=== PATIENT | male | born 1980 | race Caucasian/White ===

== ENCOUNTER 2025-04-09 11:59 | Emergency (ER) | payer BC, SELFPAY ==
[2025-04-09 12:00] VITALS: BP 120/105; PULSE 88; RESP 16; TEMP 36; O2SAT 100; BMI 25.7
--- NOTE | 2025-04-09 12:08 | EDS_ITS ---
HPI HPI - GI History of Present Illness Chief Complaint: Constipation Abdominal Pain/Flank Pain Onset: Weeks (3) Context: Gradual Onset Timing: Continuous Quality: Burning Location: Diffuse and - (Back, bilateral lower leg) Worsened by: Nothing Relieved by: Nothing Nausea/Vomiting/Emesis GI Symptom: Negative for Nausea or Vomiting Associated Symptoms Associated Symptoms: Negative for Dysuria, Frequency or Hematuria Narrative Narrative: Patient presents with constipation for the past 3 weeks. Patient went to urgent care 2 weeks ago. Patient had an x-ray done there which showed constipation but no bowel obstruction. Patient was given magnesium citrate and MiraLAX. Patient was instructed to follow-up with his primary care physician but has not been able to schedule the appointment yet. Patient states nothing makes it better nothing makes it worse. Patient admits to some burning in his back. Patient denies any fevers or chills. Patient denies any nausea or vomiting. PFSH PFSH Medical History no medical history no medical history Allergy/AdvReac Type Severity Reaction Status Date / Time No Known Allergies Allergy Verified 04/09/25 12:01 Surgical History no surgical history no surgical history Social History (Updated 04/09/25 @ 12:[address] Nicolas Kennedy, DO) Smoking Status: Current every day smoker tobacco type: cigarettes ROS ROS ED Constitutional Constitutional ED: Denies chills or fever(s) Eyes Eyes: Denies blurry vision or change in vision ENT ENT ED: Denies rhinorrhea or sore throat Cardiovascular Cardiovascular: Denies chest pain or palpitations Respiratory/Chest Respiratory/Chest: Denies cough or dyspnea Gastrointestinal Gastrointestinal: Reports constipation; Denies nausea or vomiting Genitourinary Genitourinary ED: Denies dysuria or hematuria Musculoskeletal Musculoskeletal: Reports back pain; Denies neck pain Integumentary Denies abscess or rash Neurologic Neurologic: Denies headache(s) or weakness Allergic/Immunologic Allergic/Immunologic ED: Denies mouth swelling or urticaria EXAM Physical Exam Const Vital Signs: 04/09/25 12:00 04/09/25 14:16 Temperature 96.8 F L Temperature Source Temporal Pulse Rate 88 72 Respiratory Rate 16 16 Blood Pressure 120/105 H 116/73 Blood Pressure Mean 110 87 Pulse Ox 100 100 Oxygen Delivery Method Room Air Room Air Positive well nourished and well developed General Appearance ED: well developed and NAD HEENT Reports moist mucous membranes Neck supple and no JVD Resp normal respiratory effort and clear to auscultation bilaterally Cardio regular rate and regular rhythm GI non-tender and non-distended Palpation: soft Extremity full ROM Neuro CN's II-XII intact bilaterally, moves all extremities and no sensory deficits noted Sensorium / Orientation: alert Motor Exam: strength 5/5 throughout Psych mental status grossly normal MDM MDM MDM Narrative Medical decision making narrative: Differential diagnosis includes bowel obstruction and constipation. Acute abdominal x-rays will be obtained to assess for bowel obstruction. Radiography Diagnostic Testing: Clinical Impression(s) from Imaging Studies Acute Abdomen Series 04/09/25 12:15 IMPRESSION: Unremarkable x-ray of the chest and abdomen without acute findings. No free air. Reading Location: [facility] Acute abdominal x-rays were obtained. There are 3 views. On my independent interpretation, there is no evidence of bowel obstruction or perforation. There is a moderate amount of stool in the colon. Radiologist also interpreted the x- rays and agrees. Treatment and Re-Evaluation :: Patient was given a soapsuds enema. Patient had moderate results with this. Patient was feeling better on reevaluation. Patient was advised to continue his MiraLAX as prescribed. Patient was advised that he may increase this as needed. Patient was instructed to eat a high-fiber diet. Patient was instructed to follow-up with his primary care physician in 5 to 7 days. Patient was instructed to return if worse in any way. Patient understood and was agreeable with the plan. All questions were answered. Discharge Plan Triage Chief Complaint: Constipation ED Provider: Nicolas Kennedy Dx/Rx/DC Orders Clinical Impression: Constipation, Elevated blood pressure reading, Tobacco use Instructions: Eating a High-Fiber Diet, ED Constipation (Adult) Primary Care Provider: Edson Gilmore Referrals: NOT,DEFINED [Non-Staff] - Edson Gilmore, [facility] [Primary Care Provider] - Keep Fartun appointment Activity Restrictions/Additional Instructions: Eat a high-fiber diet. You may also take fiber supplement such as Metamucil to help with constipation. Print Language: Amharic Disposition Disposition: Home, Self Care
--- NOTE | 2025-04-09 12:15 | RAD_ITS ---
PROCEDURE: ACUTE ABDOMEN INC CHEST 04/09/2025 REASON FOR EXAM: ABDOMINAL PAIN TECHNIQUE: ACUTE ABDOMEN INC CHEST COMPARISON: None. FINDINGS: Hardware: None. Heart: Normal in size. Lungs: Clear. No pleural effusion or pneumothorax.. Bowel gas: Unremarkable. Free air: No free air under the diaphragm. Calcifications: None. Bones: No acute bony abnormalities. Other: RAD/Acute Abdomen Inc Chest IMPRESSION: Unremarkable x-ray of the chest and abdomen without acute findings. No free ai r. Reading Location: [id number]
[2025-04-09 14:16] VITALS: BP 116/73; PULSE 72; RESP 16; O2SAT 100
[2025-04-09 14:44] VITALS: BP 116/73; PULSE 76; RESP 18; TEMP 37; O2SAT 100
== END 2025-04-09 14:45 | disposition home or self-care (01) ==
PROVIDERS: Emergency Provider Emergency Medicine; Visit Provider Emergency Medicine
DX: K59.00 Constipation, unspecified (principal); R03.0 Elevated blood-pressure reading, without diagnosis of hypertension; F17.210 Nicotine dependence, cigarettes, uncomplicated
CPT/HCPCS: 74022; 99284